=== PATIENT | female | born 1965 | race Caucasian/White ===

== ENCOUNTER 2024-09-05 21:50 | Emergency (ER) | payer OTHER ==
[~2024-09-05] VITALS: Ht 175.3 cm; Wt 65.0 kg
[2024-09-05 21:55] VITALS: O2SAT 98
[2024-09-05] MEDS: KETOROLAC 15MG/ML VIAL IM ONE (22:25)
[2024-09-05] MEDS: MORPHINE SULFATE 4 MG/ML INJ (FOR IV/IM USE) IM ONE (23:00)
[2024-09-05] MEDS ORDERED: LIDOCAINE HCL 2% 5ML SYRINGE IV ONE (23:00)
[2024-09-05] MEDS ORDERED: LIDOCAINE HCL 2% 5ML SYRINGE IV NR (23:15)
[2024-09-06] MEDS ORDERED: HYDR-4001 MT (01:18)
[2024-09-06 01:40] VITALS: BP 112/83; PULSE 76; RESP 16; TEMP 36.94740; O2SAT 100
== END 2024-09-06 01:41 | disposition home or self-care (01) ==
LOC: ER 21:50
DX: S52.532A Colles' fracture of left radius, initial encounter for closed fracture (principal); I10 Essential (primary) hypertension; E78.00 Pure hypercholesterolemia, unspecified; Z88.2 Allergy status to sulfonamides; W18.39XA Other fall on same level, initial encounter; Y93.89 Activity, other specified; Y92.89 Other specified places as the place of occurrence of the external cause; Y99.8 Other external cause status
CPT/HCPCS: 73110 ×2; 24650; 96372; 99284; J1885; J3490; J2270; Z7610 ×2; A4565